=== PATIENT | male | born 1990 | race Caucasian/White ===

== ENCOUNTER → 2025-01-01 12:51 | Outpatient (CLI) | payer MEDICAID, SELFPAY | PROVIDERS: Referring Provider Student in an Organized Health Care Education/Training Program; Visit Provider Surgery | DX: G57.83 Other specified mononeuropathies of bilateral lower limbs (principal); L97.522 Non-pressure chronic ulcer of other part of left foot with fat layer exposed; L84 Corns and callosities; R60.0 Localized edema; I10 Essential (primary) hypertension | CPT/HCPCS: 11042; 87070; 87075; 87077; 87186; 87205; 99203; 99213 ==

== ENCOUNTER → 2025-01-01 15:08 | Outpatient (CLI) | payer MEDICAID, SELFPAY ==
--- NOTE | 2025-01-01 15:10 | DI.RAD.S_ITS ---
PROCEDURE: XR FOOT LT MIN 3V INDICATIONS: eval for osteo TECHNIQUE: 3 views of the foot were acquired. COMPARISON: None. FINDINGS: Bones: No fractures or dislocations. No suspicious bony lesions. Soft tissue ulcer along the lateral margin of the 5th metatarsophalangeal joint. No definite radiographic evidence of osteomyelitis. Soft tissues: No tibiotalar joint effusion. Achilles tendon appears normal. Retrocalcaneal and plantar calcaneal enthesophytes noted. IMPRESSION: No evidence of acute osseous abnormality or definite radiographic evidence of osteomyelitis. Dictated by: Jacky Crump M.D. on 01/01/2025 at 19:30 Approved by: Jacky Crump M.D. on 01/01/2025 at 19:31
== END ==
PROVIDERS: Referring Provider Surgery; Visit Provider Surgery
DX: L97.529 Non-pressure chronic ulcer of other part of left foot with unspecified severity (principal); M77.32 Calcaneal spur, left foot
CPT/HCPCS: 73630

== ENCOUNTER → 2025-01-08 14:10 | Outpatient (CLI) | payer MEDICAID, SELFPAY | PROVIDERS: Referring Provider Student in an Organized Health Care Education/Training Program; Visit Provider Surgery | DX: G57.83 Other specified mononeuropathies of bilateral lower limbs (principal); L97.522 Non-pressure chronic ulcer of other part of left foot with fat layer exposed; R60.0 Localized edema; L84 Corns and callosities | CPT/HCPCS: 11042 ==

== ENCOUNTER → 2025-01-11 13:57 | Outpatient (CLI) | payer MEDICAID, SELFPAY | PROVIDERS: Referring Provider Student in an Organized Health Care Education/Training Program; Visit Provider Physician Assistant | DX: G60.3 Idiopathic progressive neuropathy (principal); L97.522 Non-pressure chronic ulcer of other part of left foot with fat layer exposed; L84 Corns and callosities | CPT/HCPCS: 99212 ==

== ENCOUNTER → 2025-01-15 13:46 | Outpatient (CLI) | payer SELFPAY | LOC: WC 13:46 | PROVIDERS: Referring Provider Student in an Organized Health Care Education/Training Program; Visit Provider Surgery | DX: G57.83 Other specified mononeuropathies of bilateral lower limbs (principal); L97.522 Non-pressure chronic ulcer of other part of left foot with fat layer exposed; L84 Corns and callosities; I10 Essential (primary) hypertension; E66.9 Obesity, unspecified; Z68.45 Body mass index [BMI] 70 or greater, adult | CPT/HCPCS: 11042 ==

== ENCOUNTER → 2025-01-23 14:53 | Outpatient (CLI) | payer MEDICAID, SELFPAY ==
--- NOTE | 2025-01-23 | OV.WND_ITS ---
PROGRESS NOTE DETAILS PATIENT NAME: SUZY WOODRUFF PATIENT NUMBER: [id number] CLINICIAN: ISRAEL GARRETT PATIENT DATE OF : 1990 PHYSICIAN / BLENDER HELPER: ENRIKE LEON PATIENT SUBJECTIVE CHIEF COMPLAINT THIS INFORMATION WAS OBTAINED FROM THE PATIENT. NO COMPLAINTS. WOUND TO LEFT FOOT ALLERGIES NO KNOWN ALLERGIES HPI THIS INFORMATION WAS OBTAINED FROM THE PATIENT. THE FOLLOWING HPI ELEMENTS WERE DOCUMENTED FOR THE PATIENT'S WOUND: LOCATION: L FOOT DURATION: 09/07/23 CONTEXT: NEUROPATHIC THE PATIENT IS A 34-YEAR-OLD MALE WITH OBESITY, SLEEP APNEA, AND HYPERTENSION WHO RETURNS TODAY FOR FOLLOW UP OF ULCER OVER THE LATERAL LEFT 5TH METATARSAL HEAD. THE PATIENT IS RECEIVING DRESSING CHANGES WITH HYDROFERA BLUE WITH FOOTBALL DRESSING FOR PRESSURE OFFLOADING. HE HAS COMPLETED A COURSE OF AUGMENTIN. THE PATIENT REPORTS THAT THE ULCER IS STILL SLIGHTLY PAINFUL WITH AMBULATION. HE DENIES HAVING ANY FEVER OR CHILLS. THE PATIENT REPORTS A GOOD APPETITE AND DENIES HAVING ANY OTHER RECENT CHANGES IN HIS OVERALL HEALTH. HE HAS NOT STARTED TAKING ANY PROTEIN SUPPLEMENTS. THE PATIENT HAS NO HISTORY OF EVER HAVING NONHEALING ULCERS IN THE PAST. THE PATIENT DOES NOT SMOKE CIGARETTES. ON EXAM TODAY THE MEASUREMENTS ARE STABLE BUT THERE ARE STILL SOME UNATTACHED EDGES. THE PATIENT HAS NOT YET HAD THE ARTERIAL DOPPLER. LABS: 01/01/25: CULTURE GREW ENTEROCOCCUS FAECALIS 01/01/25: X-RAY LEFT FOOT :NO EVIDENCE OF ACUTE OSSEOUS ABNORMALITY OR DEFINITE RADIOGRAPHIC EVIDENCE OF OSTEOMYELITIS MEDICAL HISTORY THIS INFORMATION WAS OBTAINED FROM THE PATIENT. PATIENT HAS A MEDICAL HISTORY OF: OBESITY HYPERTENSION HYPERLIPIDEMIA MORBID OBESITY ADDITIONAL INFORMATION DOES PATIENT HAVE A HISTORY OF CANCER? YES? COMPLETE ALL QUESTIONS.: NO SUZY WOODRUFF [id number] 1990 SURGICAL HISTORY THIS INFORMATION WAS OBTAINED FROM THE PATIENT. PATIENT HAS A SURGICAL HISTORY OF: TONSILLECTOMY - OBJECTIVE VITALS HEIGHT/LENGTH: 67 IN (170.18 CM), WEIGHT: 495.99 LBS (225.45 KGS), BMI: 77.7, TEMPERATURE: 98.7 ?F (37.06 ?C), PULSE: 89 BPM, RESPIRATORY RATE: 20 BREATHS/MIN, BLOOD PRESSURE: 165/92 MMHG, PULSE OXIMETRY: 95 %. PHYSICAL EXAM CONSTITUTIONAL: VITAL SIGNS REVIEWED AND NOTED. OBESE, WELL NOURISHED, AND IN NO ACUTE DISTRESS. ALERT AND ORIENTED X3. RESPIRATORY: EVEN RESPIRATIONS WITHOUT USE OF ACCESSORY MUSCLES. NO INTERCOASTAL RETRACTIONS NOTED. EVEN AND NON LABORED RESPIRATION. INTEGUMENTARY (HAIR, SKIN): MILD PERIWOUND CALLUS. NO SWELLING OR TENDERNESS. SEE WOUND ASSESSMENT. SKIN WARM AND DRY. NO RASHES. NEUROLOGICAL: DECREASED LOWER EXTREMITY SENSATION. PSYCHIATRIC: ORIENTATION TO TIME, PLACE AND PERSON: NORMAL AFFECT WITH NORMAL THOUGHT PATTERN. ADDITIONAL INFORMATION THE PATIENT'S POTENTIAL TO HEAL IS: FAIR. WOUND ASSESSMENT(S) WOUND #1 LEFT METATARSAL HEAD FIFTH IS A CHRONIC FULL THICKNESS NEUROPATHIC ULCER ACQUIRED ON 09/07/2023 AND HAS RECEIVED A STATUS OF NOT HEALED. INITIAL WOUND ENCOUNTER MEASUREMENTS ARE 0.8CM LENGTH X 0.7CM WIDTH X 0.1 CM DEPTH, WITH AN AREA OF 0.56 SQ CM AND A VOLUME OF 0.056 CUBIC CM.INITIAL WOUND ENCOUNTER PREVIOUS MEASUREMENTS FROM 01/15/2025 ARE 0.8CM LENGTH X 0.7CM WIDTH X 0.1CM DEPTH, WITH AN AREA OF 0.56 SQ CM AND A VOLUME OF 0.056 CUBIC CM. ADIPOSE IS EXPOSED. NO TUNNELING HAS BEEN NOTED. NO SINUS TRACT HAS BEEN NOTED. NO UNDERMINING HAS BEEN NOTED. THERE IS A SMALL AMOUNT OF SEROSANGUINEOUS DRAINAGE NOTED WHICH HAS NO ODOR. THE PATIENT REPORTS A WOUND PAIN OF LEVEL 0/10. THE WOUND MARGIN IS CALLUS WOUND BED HAS YES, BRIGHT RED, PINK, FIRM, GRANULATION, YES SLOUGH, NO ESCHAR, NO EPITHELIALIZATION. THE PERIWOUND SKIN EXHIBITED EDEMA AND CALLUS. THE PERIWOUND SKIN DID NOT EXHIBIT MACERATION. THE PERIWOUND SKIN WAS NOT DRY/SCALY AND MOIST. THE TEMPERATURE OF THE PERIWOUND SKIN IS WNL. PERIWOUND SKIN DOES NOT EXHIBIT SIGNS OR SYMPTOMS OF INFECTION. LOCAL PULSE IS PALPABLE. ADDITIONAL INFORMATION OTHER DEVITALIZED TISSUE PRESENT: BIOFILM ASSESSMENT ACTIVE PROBLEMS ICD-10 (ENCOUNTER DIAGNOSIS) L97.422 - NON-PRESSURE CHRONIC ULCER OF LEFT HEEL AND MIDFOOT WITH FAT LAYER EXPOSED KACYSUZY [id number] 1990 (ENCOUNTER DIAGNOSIS) G57.83 - OTHER SPECIFIED MONONEUROPATHIES OF BILATERAL LOWER LIMBS GENERAL NOTES NEUROPATHIC ULCER OVER LEFT 5TH METATARSAL HEAD STABLE THE FOLLOWING FACTORS HAVE BEEN IDENTIFIED THAT MAY AFFECT WOUND HEALING: DEVITALIZED TISSUE BIOFILM NEUROPATHY PRESSURE OBESITY RULE OUT INFECTION GOALS: REMOVED DEVITALIZED TISSUE REMOVE AND PREVENT BIOFILM REDUCE PRESSURE PREVENT INFECTION WOUND CLOSURE PLAN: DEBRIDEMENT, SWITCH TO DRESSING CHANGES WITH HYDROFERA BLUE AND FELT SURROUND PAD EVERY OTHER DAY. START PROTEIN SUPPLEMENTATION. FOLLOW UP IN 1 WEEK FOR A RECHECK. PROCEDURES WOUND #1 WOUND #1 (NEUROPATHIC ULCER) IS LOCATED ON THE LEFT METATARSAL HEAD FIFTH. A SKIN/SUBCUTANEOUS TISSUE LEVEL SURGICAL DEBRIDEMENT WITH A TOTAL AREA DEBRIDED OF 0.56 SQ CM. WAS PERFORMED BY ENRIKE LEON MD. SUBCUTANEOUS WAS REMOVED ALONG WITH DEVITALIZED TISSUE: BIOFILM, CALLUS, EXUDATE AND SLOUGH. THE FOLLOWING INSTRUMENT(S) WERE USED: CURETTE. PAIN CONTROL WAS ACHIEVED USING EMLA LIDOCAINE/PRILOCAINE 2.5%/2.5%. A TIME OUT WAS CONDUCTED PRIOR TO THE START OF THE PROCEDURE. A MINIMAL AMOUNT OF BLEEDING WAS CONTROLLED WITH SILVER NITRATE. THE PROCEDURE WAS TOLERATED WELL WITH A PAIN LEVEL OF 0 THROUGHOUT AND A PAIN LEVEL OF 0 FOLLOWING THE PROCEDURE. POST DEBRIDEMENT MEASUREMENTS: 0.8CM LENGTH X 0.7CM WIDTH X 0.2CM DEPTH; WITH AN AREA OF 0.56 SQ CM AND A VOLUME OF 0.112 CUBIC CM. ADDITIONAL INFORMATION MUSCLE FASCIA OR BONE REMOVED AND SENT TO PATHOLOGY?: NO PLAN WOUND ORDERS: WOUND #1 LEFT METATARSAL HEAD FIFTH CLEANSER CLEANSE WOUND WITH NORMAL SALINE CLEANSE WOUND WITH HYPOCHLOROUS ACID (VASHE OR SIMILAR) THEN APPLY HYPOCHLOROUS ACID SOAKED 4X4 GAUZE TO WOUND BED FOR 5-10 MINUTES AFTER WOUND ASSESSMENT COMPLETED. MAY SHOWER, LEAVE WOUND DRESSING INTACT. COVER WOUND DRESSING WITH A WATERPROOF BARRIER. KEEP DRESSING DRY. NO BATHS PLEASE. DRESSING ORDERS APPLY DRESSING(S) AND SECURE WITH: - HYDROFERA BLUE AND FOAM DRESSING CHANGE FREQUENCY CHANGE DRESSING EVERY OTHER DAY. ADDITIONAL ORDERS: OFF-LOADING / PRESSURE RELIEF SUZY WOODRUFF [id number] 1990 USE/WEAR WHEN WALKING: - POST OP SANDAL AND FELT SURROUND OTHER ORDER: - STAY OFF FOOT DIETARY TAKE VITAMIN C 1000MG BY MOUTH DAILY. TAKE ZINC 25MG BY MOUTH DAILY. INCREASE THE PROTEIN IN YOUR DIET. FOLLOW-UP APPOINTMENTS RETURN APPOINTMENT 1 WEEK SCRIBING ATTESTATION I ATTEST, THE NURSE, THAT I SCRIBED THESE ORDERS FOR THE WOUND CARE PROVIDER. PROVIDER REVIEW AND ATTESTATION: REVIEWED AND EVALUATED LABS. REVIEWED HOSPITAL RECORDS. DISCUSSED THE PLAN OF CARE @ BEDSIDE WITH - THE PATIENT AND MOTHER I AGREE AND ATTEST TO THE ABOVE INFORMATION PROVIDED FROM OTHER LICENSED PROFESSIONALS. PLAN OF CARE: 01. ENSURE/ESTABLISH OPTIMAL BLOOD FLOW : - COMPLETE LOWER EXTREMITY ASSESSMENT STATUS: CONTINUED DATE: 01/08/2025 - PERFORM NON-INVASIVE VASCULAR TESTING (I.E. OLIVIA) AND DOCUMENT FINDINGS. CONSIDER REPEATING WHEN WOUND HEALING <40% AFTER 30 DAYS OF WOUND CARE. STATUS: CONTINUED DATE: 01/08/2025 - ORDER VASCULAR CONSULT FOR EVALUATION/TREATMENT AND/OR NON-INVASIVE VASCULAR TESTING. STATUS: CONTINUED DATE: 01/08/2025 02. ASSESS FOR/TREAT INFECTION : - EVALUATE FOR SIGNS AND SYMPTOMS OF INFECTION AND DOCUMENT FINDINGS. STATUS: CONTINUED DATE: 01/08/2025 03. DEBRIDE WEEKLY OR MORE OFTEN PRN : - EVALUATE PATIENT IN CENTER WEEKLY TO ASSESS WOUND BED AND MARGINS FOR NEED FOR DEBRIDEMENT. STATUS: CONTINUED DATE: 01/08/2025 04. OPTIMIZE GLUCOSE CONTROL AND NUTRITION : - ORDER/REVIEW PERTINENT LABS TO EVALUATE RENAL FUNCTION, GLUCOSE CONTROL, AND NUTRITIONAL STATUS. STATUS: CONTINUED DATE: 01/08/2025 - COMPLETE A NUTRITION RISK ASSESSMENT. STATUS: COMPLETED DATE: 01/01/2025 05. OFFLOADING PLAN : - EVALUATE PLAN FOR OFFLOADING STATUS: CONTINUED DATE: 01/08/2025 06. OPTIMIZE HOST FACTORS: - ASSESS LIFESTYLE FACTORS SUCH SMOKING, ALCOHOL/DRUG ABUSE, EATING HABITS/MALNUTRITION AND ACTIVITY LEVEL. STATUS: CONTINUED DATE: 01/08/2025 07. DRESSING SELECTION : - EVALUATE FOR DRESSING-RELATED FACTORS, SUCH AVAILABILITY, WEAR TIME, ADAPTABILITY AND USE TO BETTER OPTIMIZE WOUND HEALING AND PATIENT COMPLIANCE. STATUS: CONTINUED DATE: 01/08/2025 08. ADVANCED MODALITIES : - SET TREATMENT GOALS ACCORDING TO PATIENT AND/OR CAREGIVER?S ABILITY/ COMPLIANCE. STATUS: CONTINUED DATE: 01/08/2025 09. FALL PREVENTION : - COMPLETE FALL ASSESSMENT. STATUS: COMPLETED DATE: 01/01/2025 SUZY WOODRUFF [id number] 1990 10. PAIN MANAGEMENT : - COMPLETE PAIN ASSESSMENT STATUS: CONTINUED DATE: 01/08/2025 11. MEASURABLE GOALS FOR WOUND HEALING AND/OR HYPERBARIC OXYGEN THERAPY : - WOUND CLOSURE STATUS: CONTINUED DATE: 01/08/2025 12. DURATION/FREQUENCY OF WOUND CARE VISITS : - 1X WEEKLY FOR 30 DAYS STATUS: CONTINUED DATE: 01/08/2025 ELECTRONIC SIGNATURE(S) SIGNED BY: DATE: ENRIKE LEON MD 01/23/2025 16:20:37 (PT) ENTERED BY: ENRIKE LEON MD ON 01/23/2025 16:03:55 (PT) SUZY WOODRUFF [id number] 1990
== END ==
PROVIDERS: Referring Provider Student in an Organized Health Care Education/Training Program; Visit Provider Surgery
DX: G57.83 Other specified mononeuropathies of bilateral lower limbs (principal); L97.522 Non-pressure chronic ulcer of other part of left foot with fat layer exposed; L84 Corns and callosities; R60.0 Localized edema; I10 Essential (primary) hypertension
CPT/HCPCS: 11042

== ENCOUNTER → 2025-01-30 14:50 | Outpatient (CLI) | payer MEDICAID, SELFPAY ==
--- NOTE | 2025-01-30 | OV.WND_ITS ---
PROGRESS NOTE DETAILS PATIENT NAME: SUZY WOODRUFF PATIENT NUMBER: [id number] CLINICIAN: GIL BOWEN RN PATIENT DATE OF : 1990 PHYSICIAN / TRAINER: ENRIKE LEON PATIENT SUBJECTIVE CHIEF COMPLAINT THIS INFORMATION WAS OBTAINED FROM THE PATIENT. MY MOM IS DOING MY DRESSING CHANGES GENERAL NOTES LEFT 5TH MET HEAD. ALLERGIES NO KNOWN ALLERGIES HPI THIS INFORMATION WAS OBTAINED FROM THE PATIENT. THE FOLLOWING HPI ELEMENTS WERE DOCUMENTED FOR THE PATIENT'S WOUND: LOCATION: L FOOT DURATION: 09/07/23 CONTEXT: NEUROPATHIC THE PATIENT IS A 34-YEAR-OLD MALE WITH OBESITY, SLEEP APNEA, AND HYPERTENSION WHO RETURNS TODAY FOR FOLLOW UP OF ULCER OVER THE LATERAL LEFT 5TH METATARSAL HEAD. THE PATIENT IS RECEIVING DRESSING CHANGES WITH HYDROFERA BLUE WITH FELT SURROUND PAD AND POSTOP SURGICAL SHOE FOR PRESSURE OFFLOADING. HE HAS PREVIOUSLY COMPLETED A COURSE OF AUGMENTIN. THE PATIENT REPORTS THAT THE ULCER IS STILL SLIGHTLY PAINFUL WITH AMBULATION. HE DENIES HAVING ANY FEVER OR CHILLS. THE PATIENT REPORTS A GOOD APPETITE AND DENIES HAVING ANY OTHER RECENT CHANGES IN HIS OVERALL HEALTH. HE HAS NOT STARTED TAKING ANY PROTEIN SUPPLEMENTS BUT IS TAKING VITAMIN-C AND ZINC. THE PATIENT HAS NO HISTORY OF EVER HAVING NONHEALING ULCERS IN THE PAST. THE PATIENT DOES NOT SMOKE CIGARETTES. ON EXAM TODAY THE MEASUREMENTS ARE STABLE AND GRANULATION TISSUE IS DEVELOPING. THERE ARE NO LONGER UNATTACHED EDGES. LABS: 01/01/25: CULTURE GREW ENTEROCOCCUS FAECALIS 01/01/25: X-RAY LEFT FOOT :NO EVIDENCE OF ACUTE OSSEOUS ABNORMALITY OR DEFINITE RADIOGRAPHIC EVIDENCE OF OSTEOMYELITIS FAMILY HISTORY THIS INFORMATION WAS OBTAINED FROM THE PATIENT. CANCER- FATHER SOCIAL HISTORY THIS INFORMATION WAS OBTAINED FROM THE PATIENT. NEVER SMOKER LIVES IN: PRIVATE E WITH FAMILY SUZY WOODRUFF [id number] 1990 OCCUPATION: UNEMPLOYED MEDICAL HISTORY THIS INFORMATION WAS OBTAINED FROM THE PATIENT. PATIENT HAS A MEDICAL HISTORY OF: OBESITY HYPERTENSION HYPERLIPIDEMIA MORBID OBESITY ADDITIONAL INFORMATION DOES PATIENT HAVE A HISTORY OF CANCER? YES? COMPLETE ALL QUESTIONS.: NO SURGICAL HISTORY THIS INFORMATION WAS OBTAINED FROM THE PATIENT. PATIENT HAS A SURGICAL HISTORY OF: TONSILLECTOMY - REVIEW OF SYSTEMS (ROS) THIS INFORMATION WAS OBTAINED FROM THE PATIENT. COMPLAINTS AND SYMPTOMS PATIENT COM PLAINS OF: CO-MORBID CONDITIONS: NEUROPATHY , OBESITY PRIOR WOUND HISTORY: DRAINAGE, PAIN PATIENT DENIES COM PLAINTS OR SY M PTOM S RELATED TO: CARDIOVASCULAR (CENTRAL): CHEST PAIN, DYSPNEA ON EXERTION CONSTITUTIONAL SYMPTOMS (GENERAL HEALTH): CHILLS, FEVER, LOSS OF APPETITE PRIOR WOUND HISTORY: BLEEDING, ERYTHEMA, MALODOR RESPIRATORY: COUGH, SHORTNESS OF BREATH OBJECTIVE VITALS HEIGHT/LENGTH: 67 IN (170.18 CM), WEIGHT: 495.99 LBS (225.45 KGS), BMI: 77.7, TEMPERATURE: 99 ?F (37.22 ?C), PULSE: 81 BPM, RESPIRATORY RATE: 18 BREATHS/MIN, BLOOD PRESSURE: 153/84 MMHG, PULSE OXIMETRY: 95 %. PHYSICAL EXAM CONSTITUTIONAL: VITAL SIGNS REVIEWED AND NOTED. OBESE, WELL NOURISHED, AND IN NO ACUTE DISTRESS. ALERT AND ORIENTED X3. RESPIRATORY: EVEN RESPIRATIONS WITHOUT USE OF ACCESSORY MUSCLES. NO INTERCOASTAL RETRACTIONS NOTED. EVEN AND NON LABORED RESPIRATION. INTEGUMENTARY (HAIR, SKIN): NO ERYTHEMA. NO SWELLING OR TENDERNESS. SEE WOUND ASSESSMENT. SKIN WARM AND DRY. NO RASHES. NEUROLOGICAL: DECREASED LOWER EXTREMITY SENSATION. PSYCHIATRIC: ORIENTATION TO TIME, PLACE AND PERSON: NORMAL AFFECT WITH NORMAL THOUGHT PATTERN. SUZY WOODRUFF [id number] 1990 ADDITIONAL INFORMATION THE PATIENT'S POTENTIAL TO HEAL IS: FAIR. WOUND ASSESSMENT(S) WOUND #1 LEFT METATARSAL HEAD FIFTH IS A CHRONIC FULL THICKNESS NEUROPATHIC ULCER ACQUIRED ON 09/07/2023 AND HAS RECEIVED A STATUS OF NOT HEALED. INITIAL WOUND ENCOUNTER MEASUREMENTS ARE 1CM LENGTH X 0.9CM WIDTH X 0.2 CM DEPTH, WITH AN AREA OF 0.9 SQ CM AND A VOLUME OF 0.18 CUBIC CM.INITIAL WOUND ENCOUNTER PREVIOUS MEASUREMENTS FROM 01/23/2025 ARE 0.8CM LENGTH X 0.7CM WIDTH X 0.1CM DEPTH, WITH AN AREA OF 0.56 SQ CM AND A VOLUME OF 0.056 CUBIC CM. ADIPOSE IS EXPOSED. NO TUNNELING HAS BEEN NOTED. NO SINUS TRACT HAS BEEN NOTED. NO UNDERMINING HAS BEEN NOTED. THERE IS A SMALL AMOUNT OF SEROSANGUINEOUS DRAINAGE NOTED WHICH HAS NO ODOR. THE PATIENT REPORTS A WOUND PAIN OF LEVEL 0/10. THE WOUND MARGIN IS CALLUS WOUND BED HAS YES, BRIGHT RED, PINK, FIRM, GRANULATION, YES SLOUGH, NO ESCHAR, NO EPITHELIALIZATION. THE PERIWOUND SKIN EXHIBITED EDEMA AND CALLUS. THE PERIWOUND SKIN DID NOT EXHIBIT MACERATION. THE PERIWOUND SKIN WAS NOT DRY/SCALY AND MOIST. THE TEMPERATURE OF THE PERIWOUND SKIN IS WNL. PERIWOUND SKIN DOES NOT EXHIBIT SIGNS OR SYMPTOMS OF INFECTION. LOCAL PULSE IS PALPABLE. ADDITIONAL INFORMATION OTHER DEVITALIZED TISSUE PRESENT: BIOFILM, FIBRIN ASSESSMENT ACTIVE PROBLEMS ICD-10 (ENCOUNTER DIAGNOSIS) L97.422 - NON-PRESSURE CHRONIC ULCER OF LEFT HEEL AND MIDFOOT WITH FAT LAYER EXPOSED (ENCOUNTER DIAGNOSIS) G57.83 - OTHER SPECIFIED MONONEUROPATHIES OF BILATERAL LOWER LIMBS GENERAL NOTES NEUROPATHIC ULCER OVER LEFT 5TH METATARSAL HEAD, DEVELOPING GRANULATION TISSUE, EDGES ARE ATTACHED THE FOLLOWING FACTORS HAVE BEEN IDENTIFIED THAT MAY AFFECT WOUND HEALING: DEVITALIZED TISSUE BIOFILM NEUROPATHY PRESSURE OBESITY RULE OUT INFECTION GOALS: REMOVED DEVITALIZED TISSUE REMOVE AND PREVENT BIOFILM REDUCE PRESSURE PREVENT INFECTION WOUND CLOSURE PLAN: DEBRIDEMENT, CONTINUE DRESSING CHANGES WITH HYDROFERA BLUE AND FELT SURROUND PAD EVERY OTHER DAY, ADD COLLAGEN. ENCOURAGED PROTEIN SUPPLEMENTATION. FOLLOW UP IN 1 WEEK FOR A RECHECK. PROCEDURES WOUND #1 SUZY WOODRUFF [id number] 1990 WOUND #1 (NEUROPATHIC ULCER) IS LOCATED ON THE LEFT METATARSAL HEAD FIFTH. A SKIN/SUBCUTANEOUS TISSUE LEVEL SURGICAL DEBRIDEMENT WITH A TOTAL AREA DEBRIDED OF 0.9 SQ CM. WAS PERFORMED BY ENRIKE LEON MD. SUBCUTANEOUS WAS REMOVED ALONG WITH DEVITALIZED TISSUE: BIOFILM, CALLUS, FIBRIN AND SLOUGH. THE FOLLOWING INSTRUMENT(S) WERE USED: CURETTE. PAIN CONTROL WAS ACHIEVED USING EMLA LIDOCAINE/PRILOCAINE 2.5%/2.5%. A TIME OUT WAS CONDUCTED PRIOR TO THE START OF THE PROCEDURE. A MODERATE AMOUNT OF BLEEDING WAS CONTROLLED WITH SILVER NITRATE. THE PROCEDURE WAS TOLERATED WELL WITH A PAIN LEVEL OF 0 THROUGHOUT AND A PAIN LEVEL OF 0 FOLLOWING THE PROCEDURE. POST DEBRIDEMENT MEASUREMENTS: 1CM LENGTH X 0.9CM WIDTH X 0.3CM DEPTH; WITH AN AREA OF 0.9 SQ CM AND A VOLUME OF 0.27 CUBIC CM. ADDITIONAL INFORMATION MUSCLE FASCIA OR BONE REMOVED AND SENT TO PATHOLOGY?: NO PLAN WOUND ORDERS: WOUND #1 LEFT METATARSAL HEAD FIFTH CLEANSER CLEANSE WOUND WITH NORMAL SALINE CLEANSE WOUND WITH HYPOCHLOROUS ACID (VASHE OR SIMILAR) THEN APPLY HYPOCHLOROUS ACID SOAKED 4X4 GAUZE TO WOUND BED FOR 5-10 MINUTES AFTER WOUND ASSESSMENT COMPLETED. MAY SHOWER, LEAVE WOUND DRESSING INTACT. COVER WOUND DRESSING WITH A WATERPROOF BARRIER. KEEP DRESSING DRY. NO BATHS PLEASE. DRESSING ORDERS APPLY DRESSING(S) AND SECURE WITH: - COLLAGEN, HYDROFERA BLUE AND FOAM DRESSING CHANGE FREQUENCY CHANGE DRESSING EVERY OTHER DAY. ADDITIONAL ORDERS: OFF-LOADING / PRESSURE RELIEF USE/WEAR WHEN WALKING: - POST OP SANDAL AND FELT SURROUND OTHER ORDER: - STAY OFF FOOT DIETARY TAKE VITAMIN C 1000MG BY MOUTH DAILY. TAKE ZINC 25MG BY MOUTH DAILY. INCREASE THE PROTEIN IN YOUR DIET. FOLLOW-UP APPOINTMENTS RETURN APPOINTMENT 1 WEEK SCRIBING ATTESTATION I ATTEST, THE NURSE, THAT I SCRIBED THESE ORDERS FOR THE WOUND CARE PROVIDER. PROVIDER REVIEW AND ATTESTATION: REVIEWED AND EVALUATED LABS. REVIEWED HOSPITAL RECORDS. DISCUSSED THE PLAN OF CARE @ BEDSIDE WITH - THE PATIENT AND MOTHER I AGREE AND ATTEST TO THE ABOVE INFORMATION PROVIDED FROM OTHER LICENSED PROFESSIONALS. GENERAL NOTES KEEP UP WITH THE PROTEIN SHAKES, VIT C AND ZINC PLAN OF CARE: 01. ENSURE/ESTABLISH OPTIMAL BLOOD FLOW : - COMPLETE LOWER EXTREMITY ASSESSMENT STATUS: CONTINUED DATE: 01/30/2025 - PERFORM NON-INVASIVE VASCULAR TESTING (I.E. OLIVIA) AND DOCUMENT FINDINGS. CONSIDER REPEATING WHEN WOUND HEALING <40% AFTER 30 DAYS OF WOUND CARE. STATUS: CONTINUED DATE: 01/30/2025 - ORDER VASCULAR CONSULT FOR EVALUATION/TREATMENT AND/OR NON-INVASIVE VASCULAR TESTING. SUZY WOODRUFF [id number] 1990 STATUS: CONTINUED DATE: 01/30/2025 02. ASSESS FOR/TREAT INFECTION : - EVALUATE FOR SIGNS AND SYMPTOMS OF INFECTION AND DOCUMENT FINDINGS. STATUS: CONTINUED DATE: 01/30/2025 03. DEBRIDE WEEKLY OR MORE OFTEN PRN : - EVALUATE PATIENT IN CENTER WEEKLY TO ASSESS WOUND BED AND MARGINS FOR NEED FOR DEBRIDEMENT. STATUS: CONTINUED DATE: 01/30/2025 04. OPTIMIZE GLUCOSE CONTROL AND NUTRITION : - ORDER/REVIEW PERTINENT LABS TO EVALUATE RENAL FUNCTION, GLUCOSE CONTROL, AND NUTRITIONAL STATUS. STATUS: CONTINUED DATE: 01/30/2025 - COMPLETE A NUTRITION RISK ASSESSMENT. STATUS: COMPLETED DATE: 01/01/2025 05. OFFLOADING PLAN : - EVALUATE PLAN FOR OFFLOADING STATUS: CONTINUED DATE: 01/30/2025 06. OPTIMIZE HOST FACTORS: - ASSESS LIFESTYLE FACTORS SUCH SMOKING, ALCOHOL/DRUG ABUSE, EATING HABITS/MALNUTRITION AND ACTIVITY LEVEL. STATUS: CONTINUED DATE: 01/30/2025 07. DRESSING SELECTION : - EVALUATE FOR DRESSING-RELATED FACTORS, SUCH AVAILABILITY, WEAR TIME, ADAPTABILITY AND USE TO BETTER OPTIMIZE WOUND HEALING AND PATIENT COMPLIANCE. STATUS: CONTINUED DATE: 01/08/2025 08. ADVANCED MODALITIES : - SET TREATMENT GOALS ACCORDING TO PATIENT AND/OR CAREGIVER?S ABILITY/ COMPLIANCE. STATUS: CONTINUED DATE: 01/30/2025 09. FALL PREVENTION : - COMPLETE FALL ASSESSMENT. STATUS: COMPLETED DATE: 01/01/2025 10. PAIN MANAGEMENT : - COMPLETE PAIN ASSESSMENT STATUS: CONTINUED DATE: 01/30/2025 11. MEASURABLE GOALS FOR WOUND HEALING AND/OR HYPERBARIC OXYGEN THERAPY : - WOUND CLOSURE STATUS: CONTINUED DATE: 01/30/2025 12. DURATION/FREQUENCY OF WOUND CARE VISITS : - 1X WEEKLY FOR 30 DAYS STATUS: CONTINUED DATE: 01/30/2025 ELECTRONIC SIGNATURE(S) SIGNED BY: DATE: ENRIKE LEON MD 01/30/2025 15:51:00 (PT) ENTERED BY: ENRIKE LEON MD ON 01/30/2025 14:45:40 (PT) SUZY WOODRUFF [id number] 1990
== END ==
PROVIDERS: PCP Student in an Organized Health Care Education/Training Program; Referring Provider Student in an Organized Health Care Education/Training Program; Visit Provider Surgery
DX: G57.83 Other specified mononeuropathies of bilateral lower limbs (principal); L97.522 Non-pressure chronic ulcer of other part of left foot with fat layer exposed; L84 Corns and callosities; R60.0 Localized edema
CPT/HCPCS: 11042; 99213

== ENCOUNTER → 2025-02-06 13:54 | Outpatient (CLI) | payer MEDICAID, SELFPAY | PROVIDERS: PCP Student in an Organized Health Care Education/Training Program; Referring Provider Student in an Organized Health Care Education/Training Program; Visit Provider Surgery | DX: L97.422 Non-pressure chronic ulcer of left heel and midfoot with fat layer exposed (principal); L84 Corns and callosities; R60.0 Localized edema; G62.9 Polyneuropathy, unspecified; E66.01 Morbid (severe) obesity due to excess calories; Z68.45 Body mass index [BMI] 70 or greater, adult | CPT/HCPCS: 11042 ==

== ENCOUNTER → 2025-02-13 11:17 | Outpatient (CLI) | payer SELFPAY | LOC: WC 03-25 11:18 | PROVIDERS: PCP Student in an Organized Health Care Education/Training Program; Referring Provider Student in an Organized Health Care Education/Training Program; Visit Provider Surgery | DX: G60.3 Idiopathic progressive neuropathy (principal); L97.522 Non-pressure chronic ulcer of other part of left foot with fat layer exposed; L84 Corns and callosities; R60.0 Localized edema | CPT/HCPCS: 99213 ==

== ENCOUNTER → 2025-02-21 13:28 | Outpatient (CLI) | payer MEDICAID, SELFPAY | PROVIDERS: PCP Student in an Organized Health Care Education/Training Program; Referring Provider Student in an Organized Health Care Education/Training Program; Visit Provider Surgery | DX: L97.422 Non-pressure chronic ulcer of left heel and midfoot with fat layer exposed (principal); L84 Corns and callosities; G57.83 Other specified mononeuropathies of bilateral lower limbs; L53.8 Other specified erythematous conditions; R60.0 Localized edema | CPT/HCPCS: 11042 ==

== ENCOUNTER → 2025-03-01 12:37 | Outpatient (CLI) | payer MEDICAID, SELFPAY | PROVIDERS: PCP Student in an Organized Health Care Education/Training Program; Referring Provider Student in an Organized Health Care Education/Training Program; Visit Provider Nurse Practitioner Family | DX: G60.3 Idiopathic progressive neuropathy (principal); L97.522 Non-pressure chronic ulcer of other part of left foot with fat layer exposed; L84 Corns and callosities; L53.8 Other specified erythematous conditions | CPT/HCPCS: 99213 ==

== ENCOUNTER → 2025-03-06 14:52 | Outpatient (CLI) | payer SELFPAY | LOC: WC 14:52 | PROVIDERS: PCP Student in an Organized Health Care Education/Training Program; Referring Provider Student in an Organized Health Care Education/Training Program; Visit Provider Surgery | DX: G57.83 Other specified mononeuropathies of bilateral lower limbs (principal); L97.422 Non-pressure chronic ulcer of left heel and midfoot with fat layer exposed; L53.8 Other specified erythematous conditions; L84 Corns and callosities; R60.0 Localized edema | CPT/HCPCS: 11042; 99213 ==

== ENCOUNTER → 2025-03-13 15:56 | Outpatient (CLI) | payer SELFPAY | LOC: WC 15:57 | PROVIDERS: PCP Student in an Organized Health Care Education/Training Program; Referring Provider Student in an Organized Health Care Education/Training Program; Visit Provider Surgery | DX: G57.83 Other specified mononeuropathies of bilateral lower limbs (principal); L97.522 Non-pressure chronic ulcer of other part of left foot with fat layer exposed; L53.9 Erythematous condition, unspecified; L84 Corns and callosities | CPT/HCPCS: 11042 ==

== ENCOUNTER → 2025-03-21 12:48 | Outpatient (CLI) | payer SELFPAY | LOC: WC 12:49 | PROVIDERS: PCP Student in an Organized Health Care Education/Training Program; Referring Provider Student in an Organized Health Care Education/Training Program; Visit Provider Surgery | DX: G57.83 Other specified mononeuropathies of bilateral lower limbs (principal); L97.522 Non-pressure chronic ulcer of other part of left foot with fat layer exposed; L84 Corns and callosities; E66.01 Morbid (severe) obesity due to excess calories; Z68.45 Body mass index [BMI] 70 or greater, adult | CPT/HCPCS: 11042 ==

== ENCOUNTER → 2025-03-28 14:16 | Outpatient (CLI) | payer OTHER, SELFPAY | PROVIDERS: PCP Student in an Organized Health Care Education/Training Program; Referring Provider Student in an Organized Health Care Education/Training Program; Visit Provider Surgery | DX: G57.83 Other specified mononeuropathies of bilateral lower limbs (principal); L97.522 Non-pressure chronic ulcer of other part of left foot with fat layer exposed; L84 Corns and callosities; R60.0 Localized edema; E66.9 Obesity, unspecified; Z68.45 Body mass index [BMI] 70 or greater, adult | CPT/HCPCS: 11042 ==

== ENCOUNTER → 2025-04-04 14:22 | Outpatient (CLI) | payer OTHER, SELFPAY | PROVIDERS: PCP Student in an Organized Health Care Education/Training Program; Referring Provider Student in an Organized Health Care Education/Training Program; Visit Provider Surgery | DX: G57.83 Other specified mononeuropathies of bilateral lower limbs (principal); L97.522 Non-pressure chronic ulcer of other part of left foot with fat layer exposed; E66.01 Morbid (severe) obesity due to excess calories; Z68.45 Body mass index [BMI] 70 or greater, adult; R60.0 Localized edema | CPT/HCPCS: 11042; 99213 ==

== ENCOUNTER → 2025-04-10 14:31 | Outpatient (CLI) | payer SELFPAY | LOC: WC 14:32 | PROVIDERS: PCP Student in an Organized Health Care Education/Training Program; Referring Provider Student in an Organized Health Care Education/Training Program; Visit Provider Surgery | DX: G57.83 Other specified mononeuropathies of bilateral lower limbs (principal); L97.522 Non-pressure chronic ulcer of other part of left foot with fat layer exposed; L84 Corns and callosities; E66.01 Morbid (severe) obesity due to excess calories; Z68.45 Body mass index [BMI] 70 or greater, adult | CPT/HCPCS: 11042 ==

== ENCOUNTER → 2025-04-18 12:37 | Outpatient (CLI) | payer OTHER, SELFPAY | PROVIDERS: PCP Physician Assistant; Referring Provider Student in an Organized Health Care Education/Training Program; Visit Provider Surgery | DX: G57.83 Other specified mononeuropathies of bilateral lower limbs (principal); L97.522 Non-pressure chronic ulcer of other part of left foot with fat layer exposed; L84 Corns and callosities; L53.9 Erythematous condition, unspecified; R60.0 Localized edema; E66.01 Morbid (severe) obesity due to excess calories; Z68.45 Body mass index [BMI] 70 or greater, adult | CPT/HCPCS: 11042 ==

== ENCOUNTER → 2025-04-24 13:13 | Outpatient (CLI) | payer OTHER, SELFPAY | PROVIDERS: PCP Physician Assistant; Referring Provider Physician Assistant; Visit Provider Surgery | DX: G57.83 Other specified mononeuropathies of bilateral lower limbs (principal); L97.422 Non-pressure chronic ulcer of left heel and midfoot with fat layer exposed; L53.9 Erythematous condition, unspecified; E66.01 Morbid (severe) obesity due to excess calories; Z68.45 Body mass index [BMI] 70 or greater, adult | CPT/HCPCS: 11042 ==

== ENCOUNTER → 2025-05-02 14:11 | Outpatient (CLI) | payer OTHER, SELFPAY | PROVIDERS: PCP Physician Assistant; Referring Provider Physician Assistant; Visit Provider Surgery | DX: G57.83 Other specified mononeuropathies of bilateral lower limbs (principal); L97.522 Non-pressure chronic ulcer of other part of left foot with fat layer exposed; L53.9 Erythematous condition, unspecified; R23.3 Spontaneous ecchymoses; E66.01 Morbid (severe) obesity due to excess calories; Z68.45 Body mass index [BMI] 70 or greater, adult | CPT/HCPCS: 11042; 87070; 87075; 87077; 87147; 87186; 87205; 99213 ==

== ENCOUNTER → 2025-05-07 16:01 | Outpatient (CLI) | payer OTHER, SELFPAY | LOC: WC 16:02 | PROVIDERS: PCP Physician Assistant; Referring Provider Physician Assistant; Visit Provider Surgery | DX: G57.83 Other specified mononeuropathies of bilateral lower limbs (principal); L97.522 Non-pressure chronic ulcer of other part of left foot with fat layer exposed; L84 Corns and callosities; E66.01 Morbid (severe) obesity due to excess calories; Z68.45 Body mass index [BMI] 70 or greater, adult | CPT/HCPCS: 11042 ==

== ENCOUNTER → 2025-05-15 15:50 | Outpatient (CLI) | payer OTHER, SELFPAY | PROVIDERS: PCP Physician Assistant; Referring Provider Physician Assistant; Visit Provider Surgery | DX: G57.83 Other specified mononeuropathies of bilateral lower limbs (principal); L97.522 Non-pressure chronic ulcer of other part of left foot with fat layer exposed; L84 Corns and callosities; E66.01 Morbid (severe) obesity due to excess calories; Z68.45 Body mass index [BMI] 70 or greater, adult | CPT/HCPCS: 11042 ==

== ENCOUNTER → 2025-05-29 13:51 | Outpatient (CLI) | payer OTHER, SELFPAY | LOC: WC 13:54 | PROVIDERS: PCP Physician Assistant; Referring Provider Physician Assistant; Visit Provider Surgery | DX: L97.422 Non-pressure chronic ulcer of left heel and midfoot with fat layer exposed (principal); G62.9 Polyneuropathy, unspecified; L84 Corns and callosities; I10 Essential (primary) hypertension; E66.01 Morbid (severe) obesity due to excess calories; Z68.45 Body mass index [BMI] 70 or greater, adult | CPT/HCPCS: 11042; 99213 ==

== ENCOUNTER → 2025-06-05 13:52 | Outpatient (CLI) | payer OTHER, SELFPAY | LOC: WC 13:53 | PROVIDERS: PCP Physician Assistant; Referring Provider Physician Assistant; Visit Provider Surgery | DX: G62.9 Polyneuropathy, unspecified (principal); L84 Corns and callosities; L92.9 Granulomatous disorder of the skin and subcutaneous tissue, unspecified; E66.01 Morbid (severe) obesity due to excess calories; Z68.45 Body mass index [BMI] 70 or greater, adult; I10 Essential (primary) hypertension; E78.5 Hyperlipidemia, unspecified; G47.30 Sleep apnea, unspecified | CPT/HCPCS: 99213 ==

== ENCOUNTER → 2025-07-03 13:45 | Outpatient (CLI) | payer OTHER, SELFPAY | LOC: WC 13:46 | PROVIDERS: PCP Physician Assistant; Referring Provider Physician Assistant; Visit Provider Surgery | DX: G57.83 Other specified mononeuropathies of bilateral lower limbs (principal); L97.522 Non-pressure chronic ulcer of other part of left foot with fat layer exposed; S81.811A Laceration without foreign body, right lower leg, initial encounter; L84 Corns and callosities; R23.4 Changes in skin texture; R60.0 Localized edema; L98.8 Other specified disorders of the skin and subcutaneous tissue | CPT/HCPCS: 11042; 99213 ==

== ENCOUNTER → 2025-07-10 13:26 | Outpatient (CLI) | payer OTHER, SELFPAY | PROVIDERS: PCP Physician Assistant; Referring Provider Physician Assistant; Visit Provider Physician Assistant | DX: G57.83 Other specified mononeuropathies of bilateral lower limbs (principal); L97.522 Non-pressure chronic ulcer of other part of left foot with fat layer exposed; S81.811A Laceration without foreign body, right lower leg, initial encounter; L84 Corns and callosities | CPT/HCPCS: 11042; 99213 ==

== ENCOUNTER → 2025-07-18 15:01 | Outpatient (CLI) | payer OTHER, SELFPAY | LOC: WC 15:02 | PROVIDERS: PCP Physician Assistant; Referring Provider Physician Assistant; Visit Provider Surgery | DX: G60.9 Hereditary and idiopathic neuropathy, unspecified (principal); L97.522 Non-pressure chronic ulcer of other part of left foot with fat layer exposed; L84 Corns and callosities; L92.9 Granulomatous disorder of the skin and subcutaneous tissue, unspecified; L81.8 Other specified disorders of pigmentation; S81.811D Laceration without foreign body, right lower leg, subsequent encounter; I89.0 Lymphedema, not elsewhere classified; E66.9 Obesity, unspecified; Z68.45 Body mass index [BMI] 70 or greater, adult; I10 Essential (primary) hypertension; G47.30 Sleep apnea, unspecified; R26.89 Other abnormalities of gait and mobility | CPT/HCPCS: 11042 ==

== ENCOUNTER → 2025-07-31 14:16 | Outpatient (CLI) | payer OTHER, SELFPAY | LOC: WC 14:17 | PROVIDERS: PCP Physician Assistant; Referring Provider Physician Assistant; Visit Provider Surgery | DX: G57.83 Other specified mononeuropathies of bilateral lower limbs (principal); L97.522 Non-pressure chronic ulcer of other part of left foot with fat layer exposed; R60.0 Localized edema; L84 Corns and callosities | CPT/HCPCS: 11042; 99213 ==

== ENCOUNTER → 2025-08-08 12:59 | Outpatient (CLI) | payer OTHER, SELFPAY | LOC: WC 12:59 | PROVIDERS: PCP Physician Assistant; Referring Provider Physician Assistant; Visit Provider Surgery | DX: G57.83 Other specified mononeuropathies of bilateral lower limbs (principal); L97.522 Non-pressure chronic ulcer of other part of left foot with fat layer exposed; L84 Corns and callosities; R60.0 Localized edema | CPT/HCPCS: 11042 ==

== ENCOUNTER → 2025-08-22 13:04 | Outpatient (CLI) | payer OTHER, SELFPAY | PROVIDERS: PCP Physician Assistant; Referring Provider Physician Assistant; Visit Provider Physician Assistant | DX: L97.522 Non-pressure chronic ulcer of other part of left foot with fat layer exposed (principal); G62.9 Polyneuropathy, unspecified; L84 Corns and callosities; R60.0 Localized edema | CPT/HCPCS: 11042; 99213 ==

== ENCOUNTER → 2025-08-22 14:23 | Outpatient (CLI) | payer OTHER, SELFPAY ==
--- NOTE | 2025-08-22 14:27 | DI.RAD.S_ITS ---
PROCEDURE: XR FOOT LT MIN 3V INDICATIONS: Ulcer of lateral R 5th metatarsal head. Eval for osteo. TECHNIQUE: 3 views of the foot were acquired. COMPARISON: [facility], CR, XR FOOT LT MIN 3V, 01/01/2025, 15:09. FINDINGS: Bones: No fractures or dislocations. No suspicious bony lesions. No osteolysis. Calcaneal enthesopathy. Soft tissues: No tibiotalar joint effusion. Achilles tendon appears normal. Soft tissue swelling and ulceration seen along the lateral aspect of the 5th MTP joint. No osteolysis seen. IMPRESSION: 1. Although no bony erosions are identified, plain film radiography is relatively insensitive in the acute phases of osteomyelitis and may not demonstrate radiographic changes for 15 days. If acute osteomyelitis is of clinical concern, nuclear medicine regional bone scan or MRI is recommended. 2. Lateral soft tissue swelling and ulceration adjacent to the 5th MTP joint. Dictated by: Jonas Mesa RRA Interpreted: Afshin Partida MD on 08/22/2025 at 15:13 Transcribed by: BREE on 08/22/2025 at 15:15 Approved by: Afshin Partida M.D. on 08/22/2025 at 17:12
== END ==
PROVIDERS: PCP Physician Assistant; Referring Provider Physician Assistant; Visit Provider Physician Assistant
DX: M79.89 Other specified soft tissue disorders (principal); L97.529 Non-pressure chronic ulcer of other part of left foot with unspecified severity
CPT/HCPCS: 73630

== ENCOUNTER → 2025-08-29 13:03 | Outpatient (CLI) | payer OTHER, SELFPAY | LOC: WC 13:07 | PROVIDERS: PCP Physician Assistant; Referring Provider Physician Assistant; Visit Provider Surgery | DX: L97.422 Non-pressure chronic ulcer of left heel and midfoot with fat layer exposed (principal); G62.9 Polyneuropathy, unspecified; L84 Corns and callosities; R60.0 Localized edema; E66.01 Morbid (severe) obesity due to excess calories; Z68.45 Body mass index [BMI] 70 or greater, adult | CPT/HCPCS: 11042; 87070; 87077; 87147; 87186; 87205; 99213 ==

== ENCOUNTER → 2025-09-06 14:24 | Outpatient (CLI) | payer OTHER, SELFPAY | LOC: WC 15:00 | PROVIDERS: PCP Physician Assistant; Referring Provider Physician Assistant; Visit Provider Physician Assistant | DX: G60.9 Hereditary and idiopathic neuropathy, unspecified (principal); L97.422 Non-pressure chronic ulcer of left heel and midfoot with fat layer exposed; L84 Corns and callosities; L92.9 Granulomatous disorder of the skin and subcutaneous tissue, unspecified; E66.01 Morbid (severe) obesity due to excess calories; Z68.45 Body mass index [BMI] 70 or greater, adult; I10 Essential (primary) hypertension; E78.5 Hyperlipidemia, unspecified; G47.30 Sleep apnea, unspecified | CPT/HCPCS: 11042; 99213 ==

== ENCOUNTER → 2025-09-19 13:10 | Outpatient (CLI) | payer OTHER, SELFPAY | LOC: WC 13:10 | PROVIDERS: PCP Physician Assistant; Referring Provider Physician Assistant; Visit Provider Surgery | DX: G57.83 Other specified mononeuropathies of bilateral lower limbs (principal); L97.422 Non-pressure chronic ulcer of left heel and midfoot with fat layer exposed; R60.0 Localized edema; L84 Corns and callosities | CPT/HCPCS: 11042 ==

== ENCOUNTER → 2025-10-02 13:27 | Outpatient (CLI) | payer OTHER, SELFPAY | LOC: WC 13:27 | PROVIDERS: PCP Physician Assistant; Referring Provider Physician Assistant; Visit Provider Nurse Practitioner Family | DX: L97.522 Non-pressure chronic ulcer of other part of left foot with fat layer exposed (principal); G57.83 Other specified mononeuropathies of bilateral lower limbs; R60.0 Localized edema; L84 Corns and callosities | CPT/HCPCS: 11042; 99213 ==

== ENCOUNTER → 2025-10-16 13:45 | Outpatient (CLI) | payer OTHER, SELFPAY | LOC: WC 13:45 | PROVIDERS: PCP Physician Assistant; Referring Provider Physician Assistant; Visit Provider Surgery | DX: L97.522 Non-pressure chronic ulcer of other part of left foot with fat layer exposed (principal); G62.9 Polyneuropathy, unspecified; L84 Corns and callosities; L53.9 Erythematous condition, unspecified; R60.0 Localized edema; E66.9 Obesity, unspecified; Z68.45 Body mass index [BMI] 70 or greater, adult | CPT/HCPCS: 11042 ==

== ENCOUNTER → 2025-11-06 16:16 | Outpatient (CLI) | payer OTHER, SELFPAY | LOC: WC 16:19 | PROVIDERS: PCP Physician Assistant; Referring Provider Physician Assistant; Visit Provider Surgery | DX: L97.522 Non-pressure chronic ulcer of other part of left foot with fat layer exposed (principal); G62.9 Polyneuropathy, unspecified; L84 Corns and callosities; L53.9 Erythematous condition, unspecified; R60.0 Localized edema; R21 Rash and other nonspecific skin eruption | CPT/HCPCS: 11042; 99213 ==